=== PATIENT | male | born 1960 | race Caucasian/White ===

== ENCOUNTER 2016-04-11 13:25 | Emergency (ER) | payer OTHER ==
[2016-04-11] MEDS ORDERED: NALBUPHINE HCL 10 MG/ML AMP ONE ×4 (14:20→15:18)
[2016-04-11] MEDS ORDERED: ONDANSETRON 4 MG/2ML 2 ML VIAL ONE (14:20)
[2016-04-11 14:43] LABS: BASO % 0.5 % (0.2-1.0); EOS # 0.2 (0.0-0.5); EOS % 2.1 % (0.9-2.9); HEMATOCRIT 46.5 % (32.0-52.0); HEMOGLOBIN 15.7 gm/l (14.0-18.0); IMM NEUT% 0.5 % (0-1); LYMPH # 2.5 (1.0-4.8); LYMPH % 29.7 % (15-45); MEAN CELL VOLUME 91.5 fl (80.0-94.0); MEAN CORPUSCULAR HEMOGLOBIN 30.9 pg (27.0-31.0); MEAN CORPUSCULAR HGB CONC 33.8 g/dl (33.0-37.0); MEAN PLATELET VOLUME 11.5 fl (7.4-10.4); MONO # 0.7 (0.0-0.8); MONO % 8.2 % (4-12); PLATELET COUNT 226 K/mm3 (130-400); RED CELL DISTRIBUTION WIDTH 12.3 % (11.5-14.5)
[2016-04-11 14:52] LABS: ALB/GLOB RATIO 1.4 (>1.0); ALBUMIN 4.3 gm/dL (3.5-5.7); CALCIUM 9.9 mg/dL (8.6-10.3)
--- NOTE | 2016-04-11 15:06 | CT ---
HEAD W/O CON COMPARISON: None HISTORY: Headache for 4 days. TECHNIQUE: Using a [employer] [address] scanner, images were obtained through the head. An automated dose reduction technique was used to minimize patient radiation dose. DOSE INFORMATION: CTDIvol (mGy): 51.70 DLP(mGycm): 913.10 FINDINGS: Mass: None Intracranial Hemorrhage: None Acute Infarction: None Cerebral hemispheres: Normal Basal ganglia: Normal Thalami: Normal Brainstem: Normal Cerebellum: Normal Ventricles: Normal Basilar cisterns: Normal Corpus callosum: Normal Pituitary fossa: Normal Middle ears and mastoid air cells: Normal Orbits and sinuses: Left eye prosthesis. Normal right eye. Normal sinuses. Skull and scalp: Normal Dural sinuses and vessels: Normal IMPRESSION: 1. Normal study. The cause for headache is not identified. 2. Left eye prosthesis. The report was sent to the emergency department electronic medical record system 04/11/2016 at 15:07
== END 2016-04-11 15:56 | disposition home or self-care (01) ==
LOC: ED 13:25
DX: R51 Headache (principal); R74.8 Abnormal levels of other serum enzymes; F17.210 Nicotine dependence, cigarettes, uncomplicated